=== PATIENT | female | born 1975 | race African-American/Black ===

== ENCOUNTER 2024-01-12 12:04 | Inpatient (IN) | payer SELFPAY ==
[~2024-01-12] VITALS: Ht 172.7 cm; Wt 75.3 kg
[2024-01-12] MEDS: ACETAMINOPHEN 325MG TABLET PO ONE (13:41)
[2024-01-12] MEDS: SODIUM CHLORIDE 0.9% 1000ML BAG (SEPSIS BOLUS) IV ONE (13:41)
[2024-01-12] MEDS: LEVOFLOXACIN 750MG PREMIX 150 ML IV ONE (13:41)
[2024-01-12 13:52] LABS: BASOPHILS % 0.3 % (0.0-2.0); EOSINOPHILS % 0.2 % (0.0-5.0); HEMATOCRIT. 37.2 % (36.0-48.0); HEMOGLOBIN. 11.9 g/dL (12.0-16.0); LYMPHOCYTES % 8.4 % (20.0-50.0); MEAN CORPUSCULAR HEMOGLOBIN 29.3 pg (28.0-32.0); MEAN CORPUSCULAR VOLUME 91.6 fL (81.0-99.0); MEAN PLATELET VOLUME 9.3 fl (7.4-10.4); MONOCYTES % 3.7 % (2.0-8.0); NEUTROPHILS % 87.4 % (40.0-76.0); PLATELET 301 x1000/uL (130-400); RED BLOOD CELL COUNT 4.06 mill/uL (4.2-5.4); RED CELL DISTRIBUTION WIDTH 13.4 % (11.6-14.6); WHITE BLOOD COUNT 14.8 x1000/uL (4.5-11.0)
[2024-01-12] MEDS: VANCOMYCIN 1G PREMIX 200 ML IV ONE (14:06)
[2024-01-12 14:09] LABS: ACETAMINOPHEN 8 ug/mL (10-30); ALANINE AMINOTRANSFERASE 46 IU/L (10-49); ALBUMIN 4.7 g/dL (3.2-4.8); ASPARTATE AMINOTRANSFERASE 90 IU/L (<34); BILIRUBIN DIRECT 0.2 mg/dL (<=3.0); BILIRUBIN TOTAL 0.5 mg/dL (0.1-1.0); PROTEIN TOTAL 7.6 g/dL (6.0-8.3)
[2024-01-12 14:12] LABS: PROTHROMBIN TIME 11.5 sec (9.6-11.0)
[2024-01-12 15:16] LABS: ETHANOL BLOOD < 10 mg/dL (<10)
[2024-01-12 15:19] LABS: TROPONIN I HIGH SENSITIVITY 40 ng/L (3.0-34)
[2024-01-12 15:39] LABS: POTASSIUM 2.9 mEq/L (3.5-5.1)
[2024-01-12 15:41] LABS: CALCIUM 10.1 mg/dL (8.7-10.4)
[2024-01-12 15:45] LABS: CREATININE 1.3 mg/dL (0.6-1.0)
[2024-01-12] MEDS: ASPIRIN 325MG EC TABLET PO ONE (16:54)
[2024-01-12] MEDS: POTASSIUM CHLORIDE 20MEQ TABLET SR PO ONE (16:54)
[2024-01-12] MEDS ORDERED: CLONIDINE 0.1MG TABLET PO PRN (18:30)
[2024-01-12] MEDS ORDERED: PIPERACILLIN/TAZOBACTAM 3.375 G in DEXTROSE 5% WATER 50 ML IV SCH (18:30)
[2024-01-12] MEDS ORDERED: MAGNESIUM/ALUMINUM HYDROXIDE/SIMETHICONE 30ML UDC PO PRN (18:30)
[2024-01-12] MEDS ORDERED: GUAIFENESIN 200MG/10ML SUGAR FREE UDC PO PRN (18:30)
[2024-01-12] MEDS ORDERED: ONDANSETRON HCL 4MG/2ML INJ IV PRN (18:30)
[2024-01-12] MEDS ORDERED: DOCUSATE SODIUM 100MG CAPSULE PO PRN (18:30)
[2024-01-12] MEDS ORDERED: IPRATROPIUM/ALBUTEROL 0.5-3(2.5)MG/3ML NEB HHN PRN (18:30)
[2024-01-12] MEDS ORDERED: ACETAMINOPHEN 325MG TABLET PO PRN ×2 (18:30)
[2024-01-12] MEDS ORDERED: DULO60CA64 PO (18:50)
[2024-01-12] MEDS ORDERED: GABA-532 PO (19:11)
[2024-01-12] MEDS: SODIUM CHLORIDE 0.9% 1,000 ML IV SCH (21:48)
[2024-01-12 22:07] LABS: CLARITY URINE CLEAR (CLEAR); COLOR URINE YELLOW (YELLOW); GLUCOSE URINE NEGATIVE (NEGATIVE); KETONES URINE 1+ (NEGATIVE); LEUKOCYTE ESTERASE URINE NEGATIVE (NEGATIVE); NITRITE URINE NEGATIVE (NEGATIVE); OCCULT BLOOD URINE NEGATIVE (NEGATIVE); PROTEIN URINE 1+ (NEGATIVE); SPECIFIC GRAVITY URINE 1.022 (1.005-1.030); UROBILINOGEN URINE 0.2 E.U./dL (0.2-1.0)
[2024-01-12 22:18] VITALS: BP 119/77; PULSE 67; RESP 19; TEMP 97.5
[2024-01-12 22:20] LABS: *AMPHETAMINES SCREEN URINE NEGATIVE (NEGATIVE)
[2024-01-12 22:21] LABS: *BARBITURATES SCREEN URINE NEGATIVE (NEGATIVE); *BENZODIAZEPINES SCREEN URINE NEGATIVE (NEGATIVE); *COCAINE SCREEN URINE NEGATIVE (NEGATIVE); CANNABINOID URINE SCREEN NEGATIVE (NEGATIVE); ECSTASY MDMA SCREEN URINE NEGATIVE (NEGATIVE); METHADONE URINE SCREEN NEGATIVE (NEGATIVE); OPIATES URINE SCREEN PRESUMPTIVE POSITIVE (NEGATIVE); PHENCYCLIDINE URINE SCREEN NEGATIVE (NEGATIVE)
[2024-01-12 22:30] LABS: LDL CHOLESTEROL 68 mg/dL (5-100); TRIGLYCERIDE 46 mg/dL (0-150); TROPONIN I HIGH SENSITIVITY 34 ng/L (3.0-34)
[2024-01-12 22:31] LABS: ALANINE AMINOTRANSFERASE 60 IU/L (10-49); ASPARTATE AMINOTRANSFERASE 108 IU/L (<34); CHOLESTEROL 154 mg/dL (<200)
[2024-01-12 22:32] LABS: BILIRUBIN DIRECT 0.2 mg/dL (<=3.0); BILIRUBIN TOTAL 0.4 mg/dL (0.1-1.0); HDL CHOLESTEROL 71 mg/dL (>65); PHOSPHORUS 3.1 mg/dL (2.5-4.9); PROTEIN TOTAL 6.5 g/dL (6.0-8.3)
[2024-01-12 22:34] LABS: THYROID STIMULATING HORMONE 0.25 uIU/mL (0.55-4.78)
[2024-01-12 22:37] LABS: BACTERIA URINE NONE SEEN; RBC URINE 0-2 /hpf (0-2); SQUAMOUS EPITHELIAL CELL URINE 1+ /lpf (RARE/1+); WBC URINE 0-2 /hpf (0-2)
[2024-01-12 22:57] VITALS: BP 119/77; PULSE 67; RESP 19; TEMP 97.5
[2024-01-13] MEDS: VANCOMYCIN 750MG/150ML (BAXTER) IV SCH (00:32)
[2024-01-13] MEDS: ENOXAPARIN 40MG/0.4ML SYR SUBCUT SCH (00:33)
[2024-01-13 06:30] LABS: CARBON DIOXIDE 23 mEq/L (21-32); CHLORIDE 110 mEq/L (98-107); POTASSIUM 3.6 mEq/L (3.5-5.1); SODIUM 141 mEq/L (136-145)
[2024-01-13 06:36] LABS: CREATININE 0.7 mg/dL (0.6-1.0); GLUCOSE 83 mg/dL (70-105); UREA NITROGEN BLOOD 9 mg/dL (9-23)
[2024-01-13 06:42] LABS: BASOPHILS % 0.6 % (0.0-2.0); EOSINOPHILS % 2.2 % (0.0-5.0); HEMATOCRIT. 35.7 % (36.0-48.0); HEMOGLOBIN. 11.2 g/dL (12.0-16.0); LYMPHOCYTES % 32.8 % (20.0-50.0); MEAN CORPUSCULAR HEMOGLOBIN 29.2 pg (28.0-32.0); MEAN CORPUSCULAR HGB CONC 31.5 g/dL (31.0-37.0); MEAN CORPUSCULAR VOLUME 92.9 fL (81.0-99.0); MONOCYTES % 5.7 % (2.0-8.0); NEUTROPHILS % 58.7 % (40.0-76.0); PLATELET 262 x1000/uL (130-400); RED BLOOD CELL COUNT 3.84 mill/uL (4.2-5.4); RED CELL DISTRIBUTION WIDTH 13.8 % (11.6-14.6); WHITE BLOOD COUNT 9.9 x1000/uL (4.5-11.0)
[2024-01-13 08:00] VITALS: BP 112/68; PULSE 55; RESP 18; TEMP 97.7
[2024-01-13] MEDS: PANTOPRAZOLE SODIUM 40 MG/VIAL IV SCH (09:26)
[2024-01-13 12:00] VITALS: BP 122/67; PULSE 77; RESP 20; TEMP 98
[2024-01-13] MEDS: LEVOFLOXACIN 750MG PREMIX 150 ML IV SCH (13:25)
[2024-01-13] MEDS: DULOXETINE HCL 20MG DR CAPSULE PO SCH (14:41)
[2024-01-13 16:00] VITALS: BP 106/65; PULSE 67; RESP 19; TEMP 97.7
[2024-01-13 20:00] VITALS: BP 114/66; PULSE 71; RESP 18; TEMP 97.5
[2024-01-14] VITALS: BP 125/64; PULSE 64; RESP 18; TEMP 97.4
[2024-01-14 08:00] VITALS: BP 123/72; PULSE 62; RESP 18; TEMP 97.9
[2024-01-14 08:13] LABS: HEMATOCRIT 32.2 % (36.0-48.0); HEMOGLOBIN 10.5 g/dL (12.0-16.0); MEAN CORPUSCULAR HEMOGLOBIN 30.2 pg (28.0-32.0); MEAN CORPUSCULAR HGB CONC 32.6 g/dL (31.0-37.0); MEAN CORPUSCULAR VOLUME 92.7 fL (81.0-99.0); PLATELET 269 x1000/uL (130-400); RED BLOOD CELL COUNT 3.47 mill/uL (4.2-5.4); RED CELL DISTRIBUTION WIDTH 14.1 % (11.6-14.6); WHITE BLOOD COUNT 5.6 x1000/uL (4.5-11.0)
[2024-01-14 08:16] LABS: CARBON DIOXIDE 25 mEq/L (21-32); CHLORIDE 111 mEq/L (98-107); POTASSIUM 3.6 mEq/L (3.5-5.1); SODIUM 140 mEq/L (136-145)
[2024-01-14 08:22] LABS: CREATININE 0.7 mg/dL (0.6-1.0); GLUCOSE 89 mg/dL (70-105)
[2024-01-14 08:27] LABS: UREA NITROGEN BLOOD < 5 mg/dL (9-23)
[2024-01-14 12:00] VITALS: BP 111/68; PULSE 68; RESP 17; TEMP 98.4
[2024-01-14] MEDS ORDERED: QUET25TA PO ×2 (15:27→15:35)
[2024-01-14 15:39] VITALS: BP 113/71; PULSE 66; TEMP 97.3; O2SAT 100
[2024-01-14 15:46] VITALS: BP 113/71; PULSE 66; RESP 17; TEMP 97.3
[2024-01-14] MEDS ORDERED: QUETIAPINE FUMARATE 25MG TABLET PO SCH (21:00)
== END 2024-01-14 16:25 | disposition home or self-care (01) | DRG 720 ==
LOC: ER 12:04 → 5WST 16:33 → EDBEDREQTM 16:36 → EDBEDREQ 16:36 → 7EST 01-13 00:04
PROVIDERS: ADMIT Internal Medicine; ATTEND Internal Medicine
DX: A41.9 Sepsis, unspecified organism (principal); E87.6 Hypokalemia; F31.9 Bipolar disorder, unspecified; F41.9 Anxiety disorder, unspecified; G89.29 Other chronic pain; F39 Unspecified mood [affective] disorder; Z96.641 Presence of right artificial hip joint; Z72.820 Sleep deprivation; Z88.8 Allergy status to other drugs, medicaments and biological substances; Z88.0 Allergy status to penicillin; Z90.710 Acquired absence of both cervix and uterus; Z80.8 Family history of malignant neoplasm of other organs or systems; Z82.3 Family history of stroke; Z82.49 Family history of ischemic heart disease and other diseases of the circulatory system
CPT/HCPCS: 36415; 71045; 80048; 80061; 80076; 80202; 80305; 80307; 80320; 80329; 81003; 83605; 83735; 84100; 84145; 84439; 84443; 84484; 85025; 85027; 87426; 93005; 99285; J1650; J1956; J2470; J3370; J7030; G0480